=== PATIENT | female | born 1970 | race Caucasian/White ===

== ENCOUNTER 2020-03-09 05:28 | Day surgery (SDC) | payer OTHER ==
[~2020-03-09] VITALS: Ht 177.8 cm; Wt 95.4 kg
[2020-03-09 06:39] VITALS: BP 137/83
[2020-03-09] MEDS ORDERED: CHLORHEXIDINE 15 ML UDC MM STA (06:42)
[2020-03-09] MEDS ORDERED: LACTATED RINGERS 1,000 ML IV SCH (06:42)
[2020-03-09] MEDS ORDERED: PROPOFOL 50 ML ONE ×2 (07:15→08:27)
[2020-03-09] MEDS ORDERED: MIDAZOLAM 1 MG/ML, 2ML ONE (07:15)
[2020-03-09] MEDS ORDERED: FENTANYL PF 250 MCG/5ML ONE (07:15)
[2020-03-09] MEDS ORDERED: no meds per pt (07:23)
[2020-03-09] MEDS ORDERED: OXYcodone 5 MG/5 ML ORAL.SOL UDC PO PRN (07:30)
[2020-03-09] MEDS ORDERED: PROMETHAZINE 25 MG/ML, 1ML IVPush PRN (07:30)
[2020-03-09] MEDS ORDERED: EPHEDRINE 50 MG/ML, 1ML IVPush PRN (07:30)
[2020-03-09] MEDS ORDERED: ONDANSETRON 2MG/ML, 2ML IVPush PRN (07:30)
[2020-03-09] MEDS ORDERED: MEPERIDINE/PF 25MG/0.5ML IVPush PRN (07:30)
[2020-03-09] MEDS ORDERED: DIPHENHYDRAMINE 50 MG/ML, 1ML IVPush PRN (07:30)
[2020-03-09] MEDS ORDERED: LABETALOL 5MG/ML, 20ML IV PRN (07:30)
[2020-03-09] MEDS ORDERED: ACETAMINOPHEN 325 MG TABLET PO PRN (07:30)
[2020-03-09] MEDS ORDERED: DIAZEPAM 5 MG/ML, 2ML IVPush PRN (07:30)
[2020-03-09] MEDS ORDERED: EPHEDRINE 50 MG/ML, 1ML IM PRN (07:30)
[2020-03-09] MEDS ORDERED: LIDOCAINE 1%, 20ML ONE (07:43)
[2020-03-09] MEDS ORDERED: BUPIVACAINE/PF 0.5% ONE ×2 (07:43→08:20)
[2020-03-09] MEDS ORDERED: ONDANSETRON 2MG/ML, 2ML ONE (07:56)
[2020-03-09] MEDS ORDERED: CEFAZOLIN 1,000 MG ONE (07:56)
[2020-03-09] MEDS ORDERED: ACETAMINOPHEN 650 MG/20.3 ML UDC ONE (09:15)
[2020-03-09] MEDS ORDERED: FENTANYL PF 100 MCG/2ML ONE ×2 (09:15→09:23)
[2020-03-09] MEDS ORDERED: OXYcodone 5 MG/5 ML ORAL.SOL UDC ONE (09:16)
[2020-03-09] MEDS: FENTANYL PF 100 MCG/2ML IV PRN ×4 (09:19→09:49)
[2020-03-09] MEDS ORDERED: HYDROmorphone 1 MG/ML, 1ML INJ ONE (09:24)
[2020-03-09] MEDS: HYDROmorphone 1 MG/ML, 1ML INJ IVPush PRN ×2 (09:28→09:37)
== END 2020-03-09 12:00 | disposition home or self-care (01) ==
LOC: OUT 05:28
PROVIDERS: ATTEND Orthopaedic Surgery
DX: S63.591A Other specified sprain of right wrist, initial encounter (principal); Z11.59 Encounter for screening for other viral diseases; Z87.891 Personal history of nicotine dependence; V91.83XA Other injury due to other accident to other powered watercraft, initial encounter; Y93.89 Activity, other specified; Y92.89 Other specified places as the place of occurrence of the external cause; Y99.8 Other external cause status
CPT/HCPCS: 25320; 64772; 73100; 76000; 87635; C1713; J0690; J1170; J2250; J2405; J2704; J3010; J7120

== ENCOUNTER 2020-05-19 08:31 | Day surgery (SDC) | payer OTHER ==
[~2020-05-19] VITALS: Ht 177.8 cm; Wt 94.8 kg
[~2020-05-19 08:31] MED LIST: no meds per pt
[2020-05-19] MEDS ORDERED: CHLORHEXIDINE 15 ML UDC ONE (09:42)
[2020-05-19] MEDS ORDERED: ONDANSETRON 2MG/ML, 2ML IVPush PRN (10:00)
[2020-05-19] MEDS ORDERED: ACETAMINOPHEN 325 MG TABLET PO PRN (10:00)
[2020-05-19] MEDS ORDERED: MIDAZOLAM 1 MG/ML, 2ML IV PRN (10:00)
[2020-05-19] MEDS ORDERED: OXYcodone 5 MG/5 ML ORAL.SOL UDC PO PRN (10:00)
[2020-05-19 10:06] VITALS: BP 131/90
[2020-05-19] MEDS ORDERED: CHLORHEXIDINE 15 ML UDC MM ONE (10:30)
[2020-05-19] MEDS ORDERED: LACTATED RINGERS 1,000 ML IV SCH (10:30)
[2020-05-19] MEDS ORDERED: FENTANYL PF 100 MCG/2ML ONE ×2 (11:04→11:29)
[2020-05-19] MEDS ORDERED: MIDAZOLAM 1 MG/ML, 2ML ONE (11:04)
[2020-05-19] MEDS ORDERED: LIDOCAINE-MPF 2% ,5ML ONE (11:09)
[2020-05-19] MEDS ORDERED: PROPOFOL 10 MG/ML, 20ML ONE (11:09)
[2020-05-19] MEDS ORDERED: OXYcodone 5 MG/5 ML ORAL.SOL UDC ONE (11:29)
[2020-05-19] MEDS: FENTANYL PF 100 MCG/2ML IV PRN ×2 (11:31→11:36)
[2020-05-19] MEDS ORDERED: ACETAMINOPHEN 325 MG TABLET ONE (11:54)
== END 2020-05-19 13:10 | disposition home or self-care (01) ==
LOC: OUT 08:31
PROVIDERS: ATTEND Orthopaedic Surgery
DX: T84.84XA Pain due to internal orthopedic prosthetic devices, implants and grafts, initial encounter (principal); G56.01 Carpal tunnel syndrome, right upper limb; Y83.8 Other surgical procedures as the cause of abnormal reaction of the patient, or of later complication, without mention of misadventure at the time of the procedure; Z20.828 Contact with and (suspected) exposure to other viral communicable diseases; Z79.899 Other long term (current) drug therapy; Z87.891 Personal history of nicotine dependence; Z88.8 Allergy status to other drugs, medicaments and biological substances; Z72.89 Other problems related to lifestyle; Z98.890 Other specified postprocedural states
CPT/HCPCS: 20670; 64721; 73100; 76000; 87635; J2250; J2704; J3010; J7120